=== PATIENT | male | born 1995 | race Caucasian/White ===

== ENCOUNTER 2024-03-30 17:58 | Emergency (ER) | payer OTHER ==
[2024-03-30 18:11] VITALS: BP 115/71; PULSE 88; RESP 18; TEMP 98.3; BMI 25.1
== END 2024-03-30 21:00 | disposition home or self-care (01) ==
LOC: JER 17:58
DX: S22.41XA Multiple fractures of ribs, right side, initial encounter for closed fracture (principal); V49.40XA Driver injured in collision with unspecified motor vehicles in traffic accident, initial encounter; Y92.410 Unspecified street and highway as the place of occurrence of the external cause
CPT/HCPCS: 99283-25